=== PATIENT | male | born 1945 | race Caucasian/White ===

== ENCOUNTER 2016-09-21 18:26 | Emergency (ER) | payer OTHER ==
[~2016-09-21] VITALS: Ht 177.8 cm; Wt 105.0 kg
[2016-09-21 18:47] VITALS: PULSE 88; RESP 18; TEMP 98; O2SAT 96
[2016-09-21 19:07] VITALS: BP 183/101; PULSE 88; RESP 18
--- NOTE | 2016-09-21 19:13 | PD ---
HPI Chief Complaint: Complaint Time Seen by Provider: 18:52 Travel History International Travel<30 days: No Contact w/Intl Traveler<30days: No Traveled to known affect area: No History of Present Illness HPI 70-year-old male is complaining of inability to void. He says he is only be able to pass small amounts of urine over the last 2-1/2 days. He does not recall having trouble like this before. As he does not have to get up at night to urinate. He has not been told of prostate trouble in the past. PFS Past Medical History Medical History: Denies Significant Hx Diminished Hearing: No Tetanus Vaccination: Unknown Influenza Vaccination: No Social History Alcohol Use: Yes (3-4 BEERS PER WEEK) Tobacco Use: No Substance Use: No Allergies-Medications (Allergen,Severity, Reaction): Coded Allergies: No Known Allergies (Unverified , 09/21/16) Review of Systems General / Constitutional: No: Fever, Chills Eyes: No: Diploplia HENT: No: Headaches Cardiovascular: No: Chest Pain or Discomfort, Palpitations Respiratory: No: Cough, Shortness of Breath Gastrointestinal: No: Vomiting, Diarrhea Genitourinary: Positive: Urgency, Frequency, Dysuria, Decreased Urinary Output Physical Exam Narrative GENERAL: Well-developed male SKIN: Warm and dry. HEAD: Atraumatic. Normocephalic. EYES: Pupils equal and round. No scleral icterus. No injection or drainage. ENT: No nasal bleeding or discharge. Mucous membranes pink and moist. NECK: Trachea midline. No JVD. CARDIOVASCULAR: Regular rate and rhythm. No murmur appreciated. RESPIRATORY: No accessory muscle use. Clear to auscultation. Breath sounds equal bilaterally. GASTROINTESTINAL: Abdomen soft, non-tender, nondistended. Hepatic and splenic margins not palpable. There is suprapubic tenderness MUSCULOSKELETAL: No obvious deformities. No clubbing. No cyanosis. No edema. NEUROLOGICAL: Awake and alert. No obvious cranial nerve deficits. Motor grossly within normal limits. Normal speech. PSYCHIATRIC: Appropriate mood and affect; insight and judgment normal. Data Data Last Documented VS Vital Signs Date Time Temp Pulse Resp B/P Pulse Ox O2 Delivery O2 Flow Rate FiO2 09/21/16 20:27 94 18 154/93 99 Room Air 09/21/16 18:47 98.0 Orders Complete Blood Count With Diff (09/21/16 19:11) Basic Metabolic Panel (Bmp) (09/21/16 19:11) Urinalysis - C+S If Indicated (09/21/16 19:11) Urinary Catheter Insert/Apply (09/21/16 19:11) Urine Culture (09/21/16 19:34) Labs Laboratory Tests Test 09/21/16 19:34 White Blood Count 6.5 TH/MM3 Red Blood Count 5.37 MIL/MM3 Hemoglobin 15.9 GM/DL Hematocrit 47.7 % Mean Corpuscular Volume 88.8 FL Mean Corpuscular Hemoglobin 29.5 PG Mean Corpuscular Hemoglobin 33.3 % Concent Red Cell Distribution Width 12.3 % Platelet Count 170 TH/MM3 Mean Platelet Volume 8.2 FL Neutrophils (%) (Auto) 72.3 % Lymphocytes (%) (Auto) 14.2 % Monocytes (%) (Auto) 9.6 % Eosinophils (%) (Auto) 2.8 % Basophils (%) (Auto) 1.1 % Neutrophils # (Auto) 4.7 TH/MM3 Lymphocytes # (Auto) 0.9 TH/MM3 Monocytes # (Auto) 0.6 TH/MM3 Eosinophils # (Auto) 0.2 TH/MM3 Basophils # (Auto) 0.1 TH/MM3 CBC Comment DIFF FINAL Differential Comment AUTO DIFF CONFIRMED Platelet Estimate NORMAL Platelet Morphology Comment CLUMPED Red Cell Morphology Comment NORMAL Urine Collection Type CLEAN CATCH Urine Color YELLOW Urine Turbidity CLEAR Urine pH 5.5 Urine Specific [place] 1.012 Urine Protein 30 mg/dL Urine Glucose (UA) NEG mg/dL Urine Ketones NEG mg/dL Urine Occult Blood LARGE Urine Nitrite NEG Urine Bilirubin NEG Urine Leukocyte Esterase TRACE Urine RBC 10-14 /hpf Urine WBC 3-5 /hpf Urine WBC Clumps RARE Urine Squamous Epithelial 0-5 /hpf Cells Urine Mucus OCC /lpf Microscopic Urinalysis Comment CULTURE INDICATED Sodium Level 137 MEQ/L Potassium Level 3.8 MEQ/L Chloride Level 103 MEQ/L Carbon Dioxide Level 22.6 MEQ/L Anion Gap 11 MEQ/L Blood Urea Nitrogen 15 MG/DL Creatinine 0.91 MG/DL Estimat Glomerular Filtration 82 ML/MIN Rate Random Glucose 112 MG/DL Calcium Level 8.6 MG/DL [facility] Medical Decision Making Medical Screen Exam Complete: Yes Emergency Medical Condition: Yes Medical Record Reviewed: Yes Differential Diagnosis Differential includes UTI, BPH, urinary retention Narrative Course Andujar catheter was inserted at 1200 cc of urine obtained. Urine just shows less than 3 white cells and a few red cells. Blood work is unremarkable. Patient will be released with a catheter in place. Started on Flomax. He is to follow-up with urology Diagnosis Primary Impression: Urinary retention Scripts Tamsulosin (Flomax)0.4 Mg Cap0.4 Mg PO HS #30 CAP Ref 0 Prov:Teddy Emmanuel MD 09/21/16 Disposition: 01 DISCHARGE HOME Condition: Stable Teddy Emmanuel MD Sep 21, 2016 19:13
[2016-09-21 19:48] LABS: AUTOMATED NEUTROPHIL # 4.7 TH/MM3 (1.8-7.7); BASOPHIL # 0.1 TH/MM3 (0-0.2); BASOPHIL % 1.1 % (0.0-2.0); EOSINOPHIL # 0.2 TH/MM3 (0-0.4); EOSINOPHIL % 2.8 % (0.0-4.0); HEMATOCRIT 47.7 % (39.0-51.0); HEMO FLAGS DIFF FINAL; LYMPH % 14.2 % (9.0-44.0); LYMPHOCYTE # 0.9 TH/MM3 (1.0-4.8); MEAN CELL VOLUME 88.8 FL (80.0-100.0); MEAN CORPUSCULAR HEMOGLOBIN 29.5 PG (27.0-34.0); MEAN CORPUSCULAR HGB CONC 33.3 % (32.0-36.0); MONO % 9.6 % (0.0-8.0); NEUT % 72.3 % (16.0-70.0); PLATELET COUNT 170 TH/MM3 (150-450); RED BLOOD COUNT 5.37 MIL/MM3 (4.50-5.90); RED CELL DISTRIBUTION WIDTH 12.3 % (11.6-17.2); WHITE BLOOD COUNT 6.5 TH/MM3 (4.0-11.0)
[2016-09-21 19:49] LABS: BLOOD, URINE LARGE (NEG); GLUCOSE,URINE NEG (NEG); KETONE, URINE NEG (NEG); NITRITE,URINE NEG (NEG); PH, URINE 5.5 (5.0-8.5)
[2016-09-21 19:57] LABS: POTASSIUM 3.8 MEQ/L (3.5-5.1)
[2016-09-21 20:01] LABS: BICARBONATE 22.6 MEQ/L (21.0-32.0)
[2016-09-21 20:04] LABS: METHOD OF COLLECTION CLEAN CATCH; URINE COLOR YELLOW (YELLW/STRAW)
[2016-09-21 20:05] LABS: MUCUS URINE OCC /lpf (OCC)
[2016-09-21 20:10] LABS: SQUAMOUS EPITHELIAL CELL URINE 0-5 /hpf (0-5)
[2016-09-21 20:11] LABS: COMMENT (UR) CULTURE INDICATED; CULTURE IF INDICATED CULTURE INDICATED
[2016-09-21 20:22] LABS: PLATELET ESTIMATE SMEAR NORMAL (NORMAL); PLATELET MORPHOLOGY CLUMPED (NORMAL); SCAN/DIFF AUTO DIFF CONFIRMED
[2016-09-21 20:27] VITALS: BP 154/93; PULSE 94; RESP 18; O2SAT 99
[2016-09-21] MEDS ORDERED: TAMS5CAP PO (20:34)
== END 2016-09-21 21:05 | disposition home or self-care (01) ==
LOC: PHED 18:26
DX: R33.9 Retention of urine, unspecified (principal)
CPT/HCPCS: 51702; 80048; 81001; 85025; 87086